=== PATIENT | male | born 1985 | race Caucasian/White ===

== ENCOUNTER 2018-01-09 00:43 | Emergency (ER) | payer BC, OTHER ==
[2018-01-09] MEDS ORDERED: IBUPROFEN 600 MG TAB PO STA (01:02)
--- NOTE | 2018-01-09 01:25 | XR ---
EXAMINATION TYPE: XR chest 2V DATE OF EXAM: 01/09/2018 COMPARISON: NONE HISTORY: Fever TECHNIQUE: Frontal and lateral views of the chest are obtained. FINDINGS: Heart and mediastinum are normal. Lungs are clear. Diaphragm is normal. Bony thorax appear s normal. IMPRESSION: Normal chest
[2018-01-09 01:44] VITALS: RESP 18
[2018-01-09 01:52] LABS: Appearance,Urine Clear (Clear); Bilirubin,Urine Negative (Negative); Blood,Urine Negative (Negative); Color,Urine Colorless; Glucose,Urine (UA) Negative (Negative); Ketones,Urine Negative (Negative); Leukocyte Esterase,Urine Negative (Negative); Nitrite,Urine Negative (Negative); Protein,Urine Negative (Negative); Specific Gravity,Urine 1.001 (1.001-1.035); Urobilinogen,Urine <2.0 mg/dL (<2.0)
--- NOTE | 2018-01-09 03:00 | ED ---
Fever HPI - General Chief Complaint: Fever Stated Complaint: Fever Time Seen by Provider: 01/09/18 01:15 Source: patient, RN notes reviewed, old records reviewed Mode of arrival: ambulatory Limitations: no limitations - History of Present Illness Initial Comments: 32-year-old male presents with a fever and mild headache. He states that he's had the symptoms for one day. Your ports that he took some Tylenol and Motrin. He reports that his fever is continuing to be elevated. He denies any cough or sore throat. He denies any chest pain shortness of breath, nausea or vomiting. He states that his family has had a history of all those this week. With similar symptoms. - Related Data Home Medications Medication Instructions Recorded Confirmed No Known Home Medications [No 03/19/16 03/19/16 Known Home Medications] Allergies Allergy/AdvReac Type Severity Reaction Status Date / Time No Known Allergies Allergy Verified 03/19/16 12:52 Review of Systems ROS Statement: Those systems with pertinent positive or pertinent negative responses have been documented in the HPI. ROS Other: All systems not noted in ROS Statement are negative. Past Medical History Past Medical History: No Reported History History of Any Multi-Drug Resistant Organisms: None Reported Past Surgical History: Appendectomy, Orthopedic Surgery Past Psychological History: No Psychological Hx Reported Smoking Status: Never smoker Past Alcohol Use History: Occasional Past Drug Use History: None Reported General Exam - General Exam Comments Initial Comments: Well paying 32-year-old male. No acute distress. Limitations: no limitations General appearance: alert, in no apparent distress Head exam: Present: atraumatic, normocephalic, normal inspection Eye exam: Present: normal appearance, PERRL, EOMI. Absent: scleral icterus, conjunctival injection, periorbital swelling ENT exam: Present: normal exam, mucous membranes moist Neck exam: Present: normal inspection. Absent: tenderness, meningismus, lymphadenopathy Respiratory exam: Present: normal lung sounds bilaterally. Absent: respiratory distress, wheezes, rales, rhonchi, stridor Cardiovascular Exam: Present: regular rate, normal rhythm, normal heart sounds. Absent: systolic murmur, diastolic murmur, rubs, gallop, clicks GI/Abdominal exam: Present: soft, normal bowel sounds. Absent: distended, tenderness, guarding, rebound, rigid Back exam: Present: normal inspection Neurological exam: Present: alert, oriented X3, CN II-XII intact Psychiatric exam: Present: normal affect, normal mood Course Vital Signs 01/09/18 01/09/18 01/09/18 00:45 01:44 03:18 Temperature 100.7 F H 100.5 F H 98.6 F Pulse Rate 114 H 96 94 Respiratory 16 18 18 Rate Blood Pressure 114/57 109/59 100/52 O2 Sat by Pulse 97 96 98 Oximetry Medical Decision Making - Medical Decision Making 32-year-old male with history of fever and mild headache for one day. Patient has had no other symptoms. Flu test was negative. Your analysis shows no signs of infection. Chest x-ray was her being a normal. He has no meningeal signs. I discussed all the findings with the patient. Likely viral illness. Discussed we could possibly do a lumbar puncture or any other concerns for infectious disease in this time. He would like to avoid that at this time. I discussed that he should take water and Tylenol for his fever. Rk's return if there's any worse. He understands treatment plan will comply. Return parameters were discussed. - Lab Data Lab Results 01/09/18 01/09/18 01/09/18 Range/Units 01:04 01:42 01:50 Urine Color Colorless Urine Appearance Clear (Clear) Urine pH 6.0 (5.0-8.0) Ur Specific [place] 1.001 (1.001-1.035) Urine Protein Negative (Negative) Urine Glucose (UA) Negative (Negative) Urine Ketones Negative (Negative) Urine Blood Negative (Negative) Urine Nitrite Negative (Negative) Urine Bilirubin Negative (Negative) Urine Urobilinogen <2.0 (<2.0) mg/dL Ur Leukocyte Esterase Negative (Negative) Influenza Type A RNA Not Detected (Not Detectd) Influenza Type B (PCR) Not Detected (Not Detectd) Group A Strep Rapid Negative (Negative) - Radiology Data Radiology results: report reviewed Chest x-ray was reviewed and normal. Disposition Clinical Impression: Viral syndrome, Fever Disposition: HOME SELF-CARE Condition: Good Instructions: Fever in Adults (ED) Additional Instructions: Patient is alternate Motrin and Tylenol. IF there are any other symptoms. Return to emergency department. Is patient prescribed a controlled substance at d/c from ED?: No When asked, does pt state using other controlled substances?: No If prescribed controlled substance>3 days was MAPS reviewed?: No If opioid is for acute pain is fill amount 7 days or less?: No If Rx opioid, was Start Talking consent form obtained?: No Referrals: None,Stated [Primary Care Provider] - 1-2 days Time of Disposition: 02:59
[2018-01-09 03:19] VITALS: BP 100/52; PULSE 94; TEMP 98.6
== END 2018-01-09 03:19 | disposition home or self-care (01) ==
LOC: EC 00:43
DX: B34.9 Viral infection, unspecified (principal)
CPT/HCPCS: 71046; 81003; 87081; 87430; 87502; 99284

== ENCOUNTER → 2021-09-22 | Outpatient (CLI) | payer BC, OTHER ==
[2021-09-23 13:16] LABS: Coronavirus SARS CoV-2 Not Detected (Not Detected)
== END | disposition home or self-care (01) ==
LOC: LABWHC1 12:35
PROVIDERS: ATTEND Internal Medicine
DX: R50.9 Fever, unspecified (principal); R11.10 Vomiting, unspecified
CPT/HCPCS: U0003; C9803